=== PATIENT | male | born 1960 | race African-American/Black ===

== ENCOUNTER → 2017-03-20 | Outpatient (CLI) | payer OTHER ==
[~2017-03-20] MED LIST: B-12 500 MCG PO; B-12500 MCG PO; CALCIUM ANTACI750 M1 PO; CALCIUM ANTACID PO; DAYPRO 600600 MG PO; FEOSOL65 MG PO; FERROUS SU325 MG/TAB PO; FLEXERIL 1010 MG/TAB PO; FLOMAX 0.40.4 MG/CAP PO; GEMFIBROZIL600 MG PO; GLUCOPHAGE500 MG/TAB PO; HYPERTENSION MED; LEVITRA20 MG PO; LEVOTHYROXINE0.15 MG PO; LISINOPRIL20 MG PO; LOPID 600M600 MG/TAB PO; MEGA RED PO; METFORMIN500 MG PO; MIRALAX PA17 GM/Dose PO; NAPROXEN EC500 MG PO; NIACIN TIME RE500 MG PO; PERCOCET 5/321 UDTAB PO; PHARMASSURE ZIN50 MG PO; PRAVACHOL40 MG PO; PREDNISONE 5MG5 MG PO; ROXICODONE 55 MG/TAB PO; SENOKOT S 50 MG1 TAB PO; VITAMIN C PURE500 MG PO; VITAMIN D31000 IU PO; VITAMIN E1000 U/CAP PO; VITAMINC500CH PO; ZESTRIL 10MG10 MG PO; ZINC NATURAL50 MG PO
== END ==
LOC: MHCPAIN 08:34
DX: G89.29 Other chronic pain (principal); M47.817 Spondylosis without myelopathy or radiculopathy, lumbosacral region; M53.3 Sacrococcygeal disorders, not elsewhere classified
CPT/HCPCS: G0463

== ENCOUNTER → 2017-03-27 | Outpatient (CLI) | payer OTHER | LOC: MHCPAIN 13:11 | DX: M47.817 Spondylosis without myelopathy or radiculopathy, lumbosacral region (principal) ==

== ENCOUNTER → 2017-04-22 | Outpatient (CLI) | payer OTHER | LOC: MHCPAIN 07:58 | DX: G89.29 Other chronic pain (principal); M47.817 Spondylosis without myelopathy or radiculopathy, lumbosacral region; M53.3 Sacrococcygeal disorders, not elsewhere classified | CPT/HCPCS: G0463 ==

== ENCOUNTER → 2017-11-13 | Outpatient (CLI) | payer OTHER | LOC: MHCPAIN 08:16 | DX: G89.29 Other chronic pain (principal); M47.817 Spondylosis without myelopathy or radiculopathy, lumbosacral region; M54.16 Radiculopathy, lumbar region; M53.3 Sacrococcygeal disorders, not elsewhere classified | CPT/HCPCS: G0463 ==

== ENCOUNTER 2018-12-23 17:12 | Emergency (ER) | payer OTHER ==
[~2018-12-23] VITALS: Ht 188 cm; Wt 95.5 kg
[2018-12-23 17:50] LABS: BASO % 0.5 % (0.0-2.0); EOS % 0.4 % (0-4.0); GRAN # 5.4 (1.4-6.5); GRAN % 63.8 % (42.2-75.2); HEMATOCRIT 44.6 % (42.0-52.0); HEMOGLOBIN 14.7 g/dl (13.5-18.0); LYMPH # 1.6 (1.2-3.4); LYMPH % 18.5 % (20.0-51.0); MEAN CELL VOLUME 93 fl (80.0-100.0); MEAN CORPUSCULAR HEMOGLOBIN 31 pg (27.0-31.0); MEAN CORPUSCULAR HGB CONC 33 g/dl (33.0-37.0); MEAN PLATELET VOLUME 10.3 fl (7.4-10.4); MONO # 1.3 (0.1-0.6); MONO % 15.6 % (1.7-9.3); PLATELET COUNT 164 K/mm3 (130-400); RED BLOOD COUNT 4.78 M/mm3 (4.20-5.60); REDCELL DISTRIBUTION WIDTH-CV 12.5 % (11.5-14.5)
[2018-12-23 17:52] LABS: ALANINE AMINOTRANSFERASE 26 U/L (21-72); ALBUMIN 4.2 gm/dL (3.5-5.0); ALKALINE PHOSPHATASE 68 U/L (50-136); ANION GAP 7 mmol/L (7-16); AST,SGOT 21 U/L (15-37); BILIRUBIN,TOTAL 0.3 mg/dL (0.0-1.0); BLOOD UREA NITROGEN 18 mg/dL (9-20); C-REACTIVE PROTEIN 1.6 mg/dL (0.0-0.9); CALCIUM 9.3 mg/dL (8.4-10.2); CARBON DIOXIDE 31 mmol/L (22-30); CHLORIDE 99 mmol/L (98-107); CREATININE, serum 1.06 (0.66-1.25); GLUCOSE 136 mg/dL (74-106); LIPASE 139 U/L (23-300); POTASSIUM 4.1 mmol/L (3.4-5.0); SODIUM 137 mmol/L (137-145)
[2018-12-23 18:02] LABS: TROPONIN-I < 0.012 ng/mL (0.000-0.035)
[2018-12-23] MEDS ORDERED: NORCO 325 MG-51 TAB PO (20:13)
[2018-12-23] MEDS ORDERED: MEDROL 4MG DOSPA4 MG PO (20:13)
[2018-12-23 20:50] VITALS: BP 110/79; PULSE 78
== END 2018-12-23 20:50 | disposition home or self-care (01) ==
LOC: COL.ER 17:12
PROVIDERS: Emergency Medicine
DX: M54.12 Radiculopathy, cervical region (principal); E11.9 Type 2 diabetes mellitus without complications; I10 Essential (primary) hypertension; E23.0 Hypopituitarism; Z79.52 Long term (current) use of systemic steroids
CPT/HCPCS: J2405; J3010; J7512

== ENCOUNTER 2019-01-05 09:34 | Emergency (ER) | payer OTHER ==
[~2019-01-05] VITALS: Ht 188 cm; Wt 97.7 kg
[~2019-01-05 09:34] MED LIST changes: +MEDROL 4MG DOSPA4 MG PO; +NORCO 325 MG-51 TAB PO
[2019-01-05 09:48] VITALS: BP 121/74
[2019-01-05] MEDS ORDERED: LIDODERM 5% PATC1 EA TP ×2 (11:17→11:18)
[2019-01-05] MEDS ORDERED: FLEXERIL 1010 MG/TAB PO (11:18)
[2019-01-05 11:28] VITALS: PULSE 82; TEMP 98.2
== END 2019-01-05 11:30 | disposition home or self-care (01) ==
LOC: COL.ER 09:34
DX: M54.2 Cervicalgia (principal); E11.9 Type 2 diabetes mellitus without complications; I25.10 Atherosclerotic heart disease of native coronary artery without angina pectoris; Z95.1 Presence of aortocoronary bypass graft

== ENCOUNTER 2019-01-25 06:02 | Emergency (ER) | payer OTHER ==
[~2019-01-25] VITALS: Ht 188 cm; Wt 95.4 kg
[~2019-01-25 06:02] MED LIST changes: -LEVOTHYROXINE0.15 MG PO; +LIDODERM 5% PATC1 EA TP; +SYNTHROID 0.10.15 MG PO
[2019-01-25 06:07] VITALS: TEMP 98.5
[2019-01-25] MEDS ORDERED: LIDODERM 5% PATC1 EA TP (06:26)
[2019-01-25] MEDS ORDERED: ZESTRIL 10MG10 MG PO (06:28)
[2019-01-25] MEDS ORDERED: FLOMAX 0.40.4 MG/CAP PO (06:29)
[2019-01-25] MEDS ORDERED: NORCO 325 MG-51 TAB PO (07:54)
[2019-01-25 08:52] VITALS: BP 110/73; PULSE 102
== END 2019-01-25 08:52 | disposition home or self-care (01) ==
LOC: COL.ER 06:02
DX: M54.2 Cervicalgia (principal); I10 Essential (primary) hypertension; E03.9 Hypothyroidism, unspecified
CPT/HCPCS: J1170; J3010